=== PATIENT | female | born 1970 | race African-American/Black ===

== ENCOUNTER 2017-01-23 11:58 | Emergency (ER) | payer BC ==
[2017-01-23 11:31] LABS: BASOPHILS 0.2 %; BASOPHILS ABSOLUTE 0.01 10/3/uL (0.0-0.16); EOSINOPHILS 3.5 %; EOSINOPHILS ABSOLUTE 0.22 10/3/uL (0.0-0.53); HEMATOCRIT 33.8 % (36.0-48.0); HEMOGLOBIN 10.7 g/dL (12.0-16.0); IMMATURE GRANULOCYTES 0.2 %; IMMATURE GRANULOCYTES ABSOLUTE 0.01 10/3/uL (0.0-0.11); LYMPHOCYTES 26.7 %; LYMPHOCYTES ABSOLUTE 1.68 10/3/uL (0.67-4.30); MEAN CORPUS HGB CONC 31.7 g/dL (32.0-36.0); MEAN CORPUSCULAR HEMOGLOB 24.2 pg (26.0-34.0); MEAN CORPUSCULAR VOLUME 76.5 fL (80-100); MEAN PLATELET VOLUME 9.9 fL (9.2-13.0); MONOCYTES 8.4 %; MONOCYTES ABSOLUTE 0.53 10/3/uL (0.21-1.20); NEUTROPHILS ABSOLUTE 3.85 10/3/uL (2.02-8.40); PLATELET COUNT 417 10/3/uL (150-400); RBC DISTRIBUTION WIDTH 13.6 % (12.0-16.0); RED CELL COUNT 4.42 10/6/uL (4.0-5.6)
[2017-01-23 11:32] LABS: ER CBC TAT 0 Hrs 09 Mins; MANUAL DIFF NO %; WHITE BLOOD CELLS 6.3 10/3/uL (4.5-10.5)
[2017-01-23 11:47] LABS: ALBUMIN 3.5 G/DL (3.5-5.0); BUN (BLOOD UREA NITROGEN) 9 MG/DL (6-23); CALCIUM, SERUM 8.4 MG/DL (8.5-10.4); CHEST PAIN PROFILE TAT 0 Hrs 22 Mins; CHLORIDE, SERUM 108 MMOL/L (96-112); CO2 (CARBON DIOXIDE) 24 MMOL/L (24-34); CREATININE 0.64 MG/DL (0.55-1.02); GFR AFRICAN AMERICAN 124 ML/MIN (>=60); GFR NON AFRICAN AMERICAN 107 ML/MIN (>=60); GLUCOSE, SERUM 87 MG/DL (60-99); POTASSIUM, SERUM 3.6 MMOL/L (3.5-5.3); SGOT(AST) 14 U/L (5-40); SGPT(ALT) 22 U/L (5-65); SODIUM, SERUM 142 MMOL/L (135-148); TOTAL BILIRUBIN 0.2 MG/DL (0-1.2); TOTAL PROTEIN 7.6 G/DL (6.0-8.5); TROPONIN I <0.02 NG/ML (<0.05)
[2017-01-23 11:48] LABS: ALKALINE PHOSPHATASE 89 U/L (45-117); DIRECT BILIRUBIN < 0.1 MG/DL (0.0-0.4); INDIRECT BILIRUBIN(NOT ORDER) 0.1 MG/DL (0.1-0.9)
[2017-01-23 11:57] LABS: INTERNATIONAL NORMAL RATI 1.1 UNITS (-); PARTIAL THROMBO TIME 21.9 SEC (22.5-37.2); PROTIME (NOT ORD) 13.6 SEC (12.0-14.5)
[~2017-01-23 11:58] MED LIST: ACET500CAP PO; ADVIL PO; AMIT25 PO; AZO DINE95 MG PO; CYMBALTA20 PO; CYMBALTA30 PO; CYMBALTA60 PO; DEX4 PO; FIORICET 50-301 EACH PO; FIORICET-COD 51 EACH PO; IBU-200200 MG PO; MACROBID PO; MYLICON 80 MG T80 MG PO; NEUR300 PO; NEUR400 PO; NEUR600 PO; NO HOME MEDS; NORCO1 TAB PO; OXYCOD PO; PLAQ200B PO; PR25 PO; PRILO PO; PROTONIX PO; REST15; REST15 PO; V2 PO; ZANTAC 150 PO; ZANTAC 75 PO; ZOFRAN4 PO; ZOL50 PO
[2017-06-30] MEDS ORDERED: ACET500CAP PO (17:29)
[2017-06-30] MEDS ORDERED: FLEX PO (17:29)
[2017-07-03] MEDS ORDERED: MSCONT15 PO (15:20)
[2017-07-04] MEDS ORDERED: ZANTAC 150 PO (02:43)
[2017-07-04] MEDS ORDERED: NORCO1 TAB PO (02:43)
[2017-07-04] MEDS ORDERED: PLAQ200B PO (02:44)
[2017-07-04] MEDS ORDERED: FIORICET 50-301 EACH PO (02:45)
[2017-07-04] MEDS ORDERED: FLEX PO (02:46)
[2017-07-04] MEDS ORDERED: NEUR400 PO (02:50)
[2017-07-04] MEDS ORDERED: CYMBALTA60 PO (02:53)
[2017-07-04] MEDS ORDERED: MSCONT15 PO (02:56)
[2017-07-04] MEDS ORDERED: OXYCOD PO (02:57)
[2017-07-25] MEDS ORDERED: AMIT25 PO (23:47)
[2017-07-26] MEDS ORDERED: CYMBALTA30 PO (13:52)
== END 2017-01-23 12:13 | disposition home or self-care (01) ==
LOC: ER 11:58
PROVIDERS: Nurse Practitioner
DX: L25.9 Unspecified contact dermatitis, unspecified cause (principal); Z88.2 Allergy status to sulfonamides; Z79.899 Other long term (current) drug therapy
CPT/HCPCS: 71010; 80048; 80076; 83690; 83735; 84484; 85025; 85610; 85730; 93005; 96374; 99283